=== PATIENT | female | born 1985 | race Two or more races ===

== ENCOUNTER 2016-03-13 22:36 | Emergency (ER) | payer OTHER ==
[~2016-03-13] VITALS: Ht 157.5 cm; Wt 77.1 kg
[2016-03-13 23:19] LABS: Basophils # (auto) 0 uL; Basophils % (auto) 0.2 % (0.0-2.0); DEFINITIVE VIEW TRANSMISSION; Eosinophils # (auto) 0.1 uL; Eosinophils % (auto) 0.8 % (0.0-7.0); Hematocrit 39.8 % (36.0-46.0); Hemoglobin 12.7 g/dL (12.2-16.2); Lymphocytes # (auto) 3.5 uL; Lymphocytes % (auto) 25.1 % (10.0-50.0); Mean Corpuscular Hemoglobin 26.3 pg (28.0-32.0); Mean Corpuscular Volume 82.4 fL (80.0-100.0); Mean Platelet Volume 8.3 fL (7.4-10.4); Monocytes # (auto) 0.7 uL; Monocytes % (auto) 4.7 % (0.0-12.0); Neutrophils # (auto) 9.7 uL; Neutrophils % (auto) 69.2 % (37.0-80.0); Platelet Count (auto) 288 10^3/uL (140-450); Red Cell Distribution Width 12.9 % (11.6-16.0)
[2016-03-13 23:39] LABS: Albumin 3.6 g/dL (3.4-5.0); BUN/Creatinine Ratio 21.7; Calcium 8.6 mg/dL (8.5-10.1); Magnesium 2.4 mg/dL (1.6-2.6)
[2016-03-13 23:42] LABS: Bilirubin, Total 0.3 mg/dL (0.2-1.0); Total Protein 8.5 g/dL (6.4-8.2)
[2016-03-14] MEDS ORDERED: DONNATAL 5ml ORAL Elix (BELLADONNA ALK-PHENOBARB) PO ONE (03:45)
[2016-03-14] MEDS ORDERED: ONDANSETRON HCL 4 MG/2 ML VIAL IV ONE (03:45)
[2016-03-14] MEDS ORDERED: SODIUM CHLORIDE 0.9% 2,000 ML IV ONE (03:45)
[2016-03-14] MEDS ORDERED: LIDOCAINE VISCOUS 2% 15ML UD PO ONE (03:45)
[2016-03-14] MEDS ORDERED: ALUM & MAG HYDROX-SIMETH LIQ(MAALOX) 30 ML PO ONE (03:45)
[2016-03-14 05:20] VITALS: BP 118/56
== END 2016-03-14 06:10 | disposition home or self-care (01) ==
LOC: ER 22:54
DX: K29.70 Gastritis, unspecified, without bleeding (principal); T62.91XA Toxic effect of unspecified noxious substance eaten as food, accidental (unintentional), initial encounter; X58.XXXA Exposure to other specified factors, initial encounter; Y93.89 Activity, other specified; Y99.9 Unspecified external cause status; Y92.89 Other specified places as the place of occurrence of the external cause
CPT/HCPCS: 36415; 76705; 80053; 82962; 83735; 84702; 85025; 96361; 96374; 99285; J2405; J7030